=== PATIENT | female | born 1995 | race Caucasian/White ===

== ENCOUNTER 2019-09-13 14:37 | Inpatient (IN) | payer MEDICAID ==
[~2019-09-13] VITALS: Ht 152.4 cm; Wt 53.1 kg
[2019-09-13 15:53] LABS: CLARITY URINE CLEAR (CLEAR); COLOR URINE YELLOW (YELLOW); KETONES URINE TRACE (NEGATIVE); LEUKOCYTE ESTERASE URINE 2+ (NEGATIVE); NITRITE URINE NEGATIVE (NEGATIVE); OCCULT BLOOD URINE 3+ (NEGATIVE); PH URINE 5.5 (4.5-8.0); PROTEIN URINE 1+ (NEGATIVE); SPECIFIC GRAVITY URINE 1.029 (1.005-1.030)
[2019-09-13] MEDS ORDERED: DEXT 5%/LR + PITOCIN 20UNITS/L 1,000 ML IV SCH ×2 (17:43→18:31)
[2019-09-13] MEDS ORDERED: LACTATED RINGERS 1,000 ML IV SCH (17:43)
[2019-09-13] MEDS ORDERED: RHO(D) IMMUNE GLOBULIN 300 MCG/SYR IM NR (17:45)
[2019-09-13] MEDS ORDERED: FENTANYL CITRATE/PF 50MCG/ML 2ML VIAL ONE (18:12)
[2019-09-13] MEDS ORDERED: DEXAMETHASONE 4MG/ML 1ML VIAL ONE (18:13)
[2019-09-13] MEDS ORDERED: ONDANSETRON HCL 4MG/2ML INJ ONE (18:13)
[2019-09-13] MEDS ORDERED: HYDROMORPHONE HCL/PF 2MG/ML (OR) ONE (18:21)
[2019-09-13] MEDS ORDERED: KETOROLAC 60MG/2ML VIAL IM ONE (18:27)
[2019-09-13] MEDS ORDERED: SUCCINYLCHOLINE CHLORIDE 200MG/10ML IV ONE (18:38)
[2019-09-13] MEDS ORDERED: PHENYLEPHRINE HCL 10 MG/ML 1ML (IV VIAL) IV ONE (18:38)
[2019-09-13] MEDS ORDERED: CEFAZOLIN SODIUM 1000MG/VIAL ONE (18:38)
[2019-09-13] MEDS ORDERED: ROCURONIUM BROMIDE 10MG/ML VIAL 5ML IV ONE (18:38)
[2019-09-13] MEDS ORDERED: OXYTOCIN 10 UNITS/ML 1ML ONE (18:38)
[2019-09-13] MEDS ORDERED: ONDANSETRON HCL 4MG/2ML INJ IV PRN (18:45)
[2019-09-13] MEDS ORDERED: HYDROCODONE/ACETAMINOPHEN 5/325MG TABLET PO PRN (18:45)
[2019-09-13] MEDS ORDERED: DIPHENHYDRAMINE 25MG CAPSULE PO PRN (18:45)
[2019-09-13] MEDS ORDERED: LANOLIN OINT 7GM TUBE TOP PRN (18:45)
[2019-09-13] MEDS ORDERED: RHO(D) IMMUNE GLOBULIN 300 MCG/SYR IM PRN (18:45)
[2019-09-13] MEDS ORDERED: HYDROMORPHONE HCL/PF 2MG/ML CPJ IV PRN (18:45)
[2019-09-13] MEDS ORDERED: HEMORRHOIDAL SUPP PR PRN (18:45)
[2019-09-13] MEDS ORDERED: ACETAMINOPHEN WITH CODEINE 300/30MG TABLET PO PRN (18:45)
[2019-09-13] MEDS ORDERED: BISACODYL 10MG SUPP PR PRN (18:45)
[2019-09-13] MEDS ORDERED: DEXT 5%/LR + PITOCIN 20UNITS/L 1,000 ML IV ONE (19:28)
[2019-09-13 20:39] LABS: INR 0.9; PARTIAL THROMBOPLASTIN TIME 27.5 sec (23.4-31.0); PROTHROMBIN TIME 9.5 sec (9.6-11.0)
[2019-09-13 20:40] LABS: HEMOGLOBIN. 11.4 g/dL (12.0-16.0); MEAN CORPUSCULAR HEMOGLOBIN 28.7 pg (28.0-32.0); MEAN CORPUSCULAR VOLUME 85.9 fL (81.0-99.0); MEAN PLATELET VOLUME 8.7 fl (7.4-10.4); PLATELET 216 x1000/uL (130-400); RED BLOOD CELL COUNT 3.96 mill/uL (4.2-5.4); RED CELL DISTRIBUTION WIDTH 14.2 % (11.6-14.6)
[2019-09-13 21:10] LABS: HEPATITIS B SURFACE ANTIGEN NEGATIVE
[2019-09-13 21:30] VITALS: BP 133/75
[2019-09-13 21:56] LABS: PLATELET ESTIMATE NORMAL
[2019-09-13 22:00] VITALS: BP 127/79
[2019-09-13 22:30] VITALS: BP 133/78
[2019-09-14 01:40] VITALS: BP 121/64
[2019-09-14 03:09] LABS: *AMPHETAMINES SCREEN URINE NEGATIVE (NEGATIVE); *BARBITURATES SCREEN URINE NEGATIVE (NEGATIVE); *BENZODIAZEPINES SCREEN URINE NEGATIVE (NEGATIVE); *COCAINE SCREEN URINE NEGATIVE (NEGATIVE); METHADONE URINE SCREEN NEGATIVE (NEGATIVE); OPIATES URINE SCREEN NEGATIVE (NEGATIVE); PHENCYCLIDINE URINE SCREEN NEGATIVE (NEGATIVE)
[2019-09-14 03:13] LABS: CANNABINOID URINE SCREEN PRESUMTIVE POSITIVE (NEGATIVE)
[2019-09-14 04:50] VITALS: BP 124/71
[2019-09-14 06:59] LABS: BASOPHILS % 0.1 % (0.0-2.0); HEMATOCRIT. 32.1 % (36.0-48.0); HEMOGLOBIN. 10.7 g/dL (12.0-16.0); LYMPHOCYTES % 7.7 % (20.0-50.0); MEAN CORPUSCULAR HEMOGLOBIN 28.7 pg (28.0-32.0); MEAN CORPUSCULAR VOLUME 86.5 fL (81.0-99.0); MONOCYTES % 6.8 % (2.0-8.0); NEUTROPHILS % 85.4 % (40.0-76.0); PLATELET 203 x1000/uL (130-400); RED BLOOD CELL COUNT 3.71 mill/uL (4.2-5.4); RED CELL DISTRIBUTION WIDTH 14.1 % (11.6-14.6)
[2019-09-14 07:28] VITALS: BP 125/62
[2019-09-14] MEDS: MAGNESIUM/ALUMINUM HYDROXIDE/SIMETHICONE 30ML UDC PO SCH ×4 (08:43→21:06)
[2019-09-14] MEDS: FERROUS SULFATE 325MG TABLET PO SCH ×3 (08:44→17:56)
[2019-09-14] MEDS: PRENATAL VIT/FE FUMARATE/FA TABLET PO SCH (08:44)
[2019-09-14] MEDS: SIMETHICONE 80MG TABLET CHEW PO SCH ×4 (08:44→21:06)
[2019-09-14] MEDS: IBUPROFEN 400MG TABLET PO PRN ×2 (08:44→16:44)
[2019-09-14 16:05] VITALS: BP 121/58
[2019-09-14] MEDS: DOCUSATE SODIUM 100MG CAPSULE PO SCH (21:06)
[2019-09-14 22:00] VITALS: BP 123/70
[2019-09-15 06:00] VITALS: BP 112/58
[2019-09-15 07:46] VITALS: BP 110/58
[2019-09-15] MEDS: FERROUS SULFATE 325MG TABLET PO SCH ×3 (08:09→17:36)
[2019-09-15] MEDS: MAGNESIUM/ALUMINUM HYDROXIDE/SIMETHICONE 30ML UDC PO SCH ×3 (08:09→17:38)
[2019-09-15] MEDS: SIMETHICONE 80MG TABLET CHEW PO SCH ×3 (08:09→17:35)
[2019-09-15] MEDS: PRENATAL VIT/FE FUMARATE/FA TABLET PO SCH (08:10)
[2019-09-15] MEDS: IBUPROFEN 400MG TABLET PO PRN ×3 (08:10→23:36)
[2019-09-15 15:33] VITALS: BP 113/58
[2019-09-15 20:00] VITALS: BP 119/69
[2019-09-15] MEDS: DOCUSATE SODIUM 100MG CAPSULE PO SCH (20:55)
[2019-09-16] VITALS: BP 106/55
[2019-09-16 04:00] VITALS: BP 107/64
[2019-09-16 08:30] VITALS: BP 117/54
[2019-09-16] MEDS: PRENATAL VIT/FE FUMARATE/FA TABLET PO SCH (09:40)
[2019-09-16] MEDS: FERROUS SULFATE 325MG TABLET PO SCH (09:40)
[2019-09-16] MEDS: IBUPROFEN 400MG TABLET PO PRN (09:41)
[2019-09-16] MEDS: SIMETHICONE 80MG TABLET CHEW PO SCH (09:41)
== END 2019-09-16 11:45 | disposition home or self-care (01) | DRG 540 ==
LOC: 8 EST LDRP 14:37 → OBSVTOIN 14:37 → 8EST 21:36
PROVIDERS: ADMIT Obstetrics & Gynecology; ATTEND Obstetrics & Gynecology
PROC: 10D00Z1 Extraction of Products of Conception, Low, Open Approach (ICD-10-PCS; principal; 2019-09-13)
DX: O32.8XX0 Maternal care for other malpresentation of fetus, not applicable or unspecified (principal); O99.324 Drug use complicating childbirth; O99.03 Anemia complicating the puerperium; F12.10 Cannabis abuse, uncomplicated; Z37.0 Single live birth; Z3A.35 35 weeks gestation of pregnancy
CPT/HCPCS: 36415; 76805; 76818; 80305; 80349; 81003; 85025; 86592; 86703; 86762; 86850; 86900; 87340; 88307; 99281; J0330; J0690; J1100; J1170; J1885; J2370; J2405; J2590; J3010; J3490

== ENCOUNTER 2022-07-29 06:59 | Inpatient (IN) | payer MEDICAID ==
[~2022-07-29] VITALS: Ht 152.4 cm; Wt 74.8 kg
[2022-07-29 10:11] LABS: CLARITY URINE CLOUDY (CLEAR); COLOR URINE YELLOW (YELLOW); KETONES URINE TRACE (NEGATIVE); LEUKOCYTE ESTERASE URINE 1+ (NEGATIVE); NITRITE URINE NEGATIVE (NEGATIVE); OCCULT BLOOD URINE 3+ (NEGATIVE); PH URINE 6.5 (4.5-8.0); PROTEIN URINE 1+ (NEGATIVE); SPECIFIC GRAVITY URINE 1.016 (1.005-1.030)
[2022-07-29] MEDS ORDERED: MAGNESIUM 2 G PREMIX 50 ML IV ONE (11:30)
[2022-07-29] MEDS ORDERED: MAGNESIUM 4 G PREMIX 100 ML IV NR (11:45)
[2022-07-29] MEDS ORDERED: BETAMETHASONE ACET/BETAMET 30 MG/5 ML VIAL IM NR (12:00)
[2022-07-29] MEDS: MAGNESIUM 20 G PREMIX (L & D) 500 ML IV SCH ×3 (12:05→22:15)
[2022-07-29] MEDS ORDERED: AMPICILLIN 2,000 MG in SODIUM CHLORIDE 0.9% 100 ML IV SCH (12:30)
[2022-07-29] MEDS: LACTATED RINGERS 1,000 ML IV SCH ×2 (15:31→23:53)
[2022-07-29] MEDS: AMPICILLIN 1,000 MG in SODIUM CHLORIDE 0.9% 50 ML IV SCH (20:12)
[2022-07-29] MEDS ORDERED: PNV1TABL76 PO (21:29)
[2022-07-29] MEDS ORDERED: FERR325T23 GT (21:29)
[2022-07-29] MEDS ORDERED: VIT1TABL62 PO (21:29)
[2022-07-29] MEDS ORDERED: FERR325T6 PO (21:29)
[2022-07-30] MEDS: AMPICILLIN 1,000 MG in SODIUM CHLORIDE 0.9% 50 ML IV SCH ×3 (02:00→14:17)
[2022-07-30 08:11] VITALS: BP 109/60
[2022-07-30] MEDS: MAGNESIUM 20 G PREMIX (L & D) 500 ML IV SCH (08:11)
[2022-07-30] MEDS ORDERED: BETAMETHASONE ACET/BETAMET 30 MG/5 ML VIAL IM ONE (14:00)
[2022-07-30] MEDS: LACTATED RINGERS 1,000 ML IV SCH (14:22)
== END 2022-07-30 18:15 | disposition home or self-care (01) | DRG 566 ==
LOC: OBSVTOIN 06:59 → 8 EST LDRP 06:59
PROVIDERS: ADMIT Specialist; ATTEND Specialist
DX: O60.03 Preterm labor without delivery, third trimester (principal); O23.43 Unspecified infection of urinary tract in pregnancy, third trimester; N39.0 Urinary tract infection, site not specified; Z3A.29 29 weeks gestation of pregnancy; Z20.822 Contact with and (suspected) exposure to COVID-19
CPT/HCPCS: 36415; 59412; 76805; 76818; 81003; 83735; 87426; 96365; 96372; 99281; J0290; J0702; J3475; J7050; J7120; A4315

== ENCOUNTER 2022-08-01 08:09 | Inpatient (IN) | payer MEDICAID ==
[~2022-08-01] VITALS: Ht 152.4 cm; Wt 77.1 kg
[~2022-08-01 08:09] MED LIST: FERR325T23 GT; FERR325T6 PO; PNV1TABL76 PO; VIT1TABL62 PO
[2022-08-01] MEDS ORDERED: MAGNESIUM 4 G PREMIX 100 ML IV NR (09:15)
[2022-08-01] MEDS ORDERED: MAGNESIUM 20 G PREMIX (L & D) 500 ML IV SCH (09:15)
[2022-08-01] MEDS: LACTATED RINGERS 1,000 ML IV SCH ×2 (09:58→17:26)
[2022-08-01 10:55] LABS: BASOPHILS % 0.2 % (0.0-2.0); EOSINOPHILS % 0.3 % (0.0-5.0); HEMATOCRIT. 34.4 % (36.0-48.0); HEMOGLOBIN. 11.6 g/dL (12.0-16.0); LYMPHOCYTES % 19.7 % (20.0-50.0); MEAN CORPUSCULAR HEMOGLOBIN 29.9 pg (28.0-32.0); MEAN CORPUSCULAR VOLUME 88.4 fL (81.0-99.0); MEAN PLATELET VOLUME 7.9 fl (7.4-10.4); MONOCYTES % 9.3 % (2.0-8.0); NEUTROPHILS % 70.5 % (40.0-76.0); PLATELET 221 x1000/uL (130-400); RED BLOOD CELL COUNT 3.89 mill/uL (4.2-5.4); RED CELL DISTRIBUTION WIDTH 13.4 % (11.6-14.6)
[2022-08-01 11:11] LABS: INR 0.9; PARTIAL THROMBOPLASTIN TIME 24.8 sec (23.4-31.0); PROTHROMBIN TIME 9.8 sec (9.6-11.0)
[2022-08-01 12:49] LABS: *AMPHETAMINES SCREEN URINE NEGATIVE (NEGATIVE); *BARBITURATES SCREEN URINE NEGATIVE (NEGATIVE); *BENZODIAZEPINES SCREEN URINE NEGATIVE (NEGATIVE); *COCAINE SCREEN URINE NEGATIVE (NEGATIVE); METHADONE URINE SCREEN NEGATIVE (NEGATIVE); OPIATES URINE SCREEN NEGATIVE (NEGATIVE); PHENCYCLIDINE URINE SCREEN NEGATIVE (NEGATIVE)
[2022-08-01 12:52] LABS: CANNABINOID URINE SCREEN PRESUMTIVE POSITIVE (NEGATIVE)
[2022-08-01 13:26] LABS: HEPATITIS B SURFACE ANTIGEN NEGATIVE
[2022-08-01 14:56] LABS: CLARITY URINE CLOUDY (CLEAR); COLOR URINE RED (YELLOW); KETONES URINE NEGATIVE (NEGATIVE); LEUKOCYTE ESTERASE URINE 1+ (NEGATIVE); NITRITE URINE NEGATIVE (NEGATIVE); OCCULT BLOOD URINE 3+ (NEGATIVE); PROTEIN URINE TRACE (NEGATIVE); SPECIFIC GRAVITY URINE 1.015 (1.005-1.030)
[2022-08-01] MEDS ORDERED: INDOMETHACIN 25MG CAPSULE PO NR (16:30)
[2022-08-01] MEDS: PANTOPRAZOLE SODIUM 40 MG/VIAL IV SCH (17:14)
[2022-08-01] MEDS ORDERED: PANTOPRAZOLE SODIUM 40 MG/VIAL IV SCH (21:00)
[2022-08-02] MEDS: LACTATED RINGERS 1,000 ML IV SCH ×4 (02:39→22:18)
[2022-08-02] MEDS: PANTOPRAZOLE SODIUM 40 MG/VIAL IV SCH ×2 (06:13→18:10)
[2022-08-02] MEDS ORDERED: CITRIC ACID/SODIUM CITRATE SOLN 30ML UDC PO NR (20:45)
[2022-08-02] MEDS ORDERED: MORPHINE SULFATE/PF 1MG/ML 10ML AMP ONE (22:08)
[2022-08-02] MEDS ORDERED: EPHEDRINE SULFATE 50MG/ML VIAL ONE (22:14)
[2022-08-02] MEDS ORDERED: PHENYLEPHRINE HCL 10 MG/ML 1ML (IV VIAL) IV ONE (22:15)
[2022-08-02] MEDS ORDERED: OXYTOCIN 10 UNITS/ML 1ML ONE (22:22)
[2022-08-02] MEDS ORDERED: ONDANSETRON HCL 4MG/2ML INJ ONE (23:04)
[2022-08-02] MEDS ORDERED: FENTANYL CITRATE/PF 50MCG/ML 2ML VIAL ONE (23:04)
[2022-08-02] MEDS ORDERED: KETOROLAC 60MG/2ML VIAL IM ONE (23:05)
[2022-08-02] MEDS ORDERED: FENTANYL CITRATE/PF 50MCG/ML 2ML VIAL IV PRN (23:45)
[2022-08-02] MEDS ORDERED: KETOROLAC 30MG/ML VIAL IV PRN (23:45)
[2022-08-02] MEDS ORDERED: MORPHINE SULFATE 4 MG/ML CPJ (NOT FOR IM USE) IV PRN (23:45)
[2022-08-02] MEDS ORDERED: NALOXONE HCL 0.4 MG/ML 1ML VIAL IV PRN (23:45)
[2022-08-02] MEDS ORDERED: ACETAMINOPHEN 500MG TABLET PO PRN (23:45)
[2022-08-03] MEDS ORDERED: HEMORRHOIDAL SUPP PR PRN (00:15)
[2022-08-03] MEDS ORDERED: LANOLIN OINT 7GM TUBE TOP PRN (00:15)
[2022-08-03] MEDS ORDERED: DIPHENHYDRAMINE 25MG CAPSULE PO PRN (00:15)
[2022-08-03] MEDS ORDERED: RHO(D) IMMUNE GLOBULIN 300 MCG/SYR IM PRN (00:15)
[2022-08-03] MEDS ORDERED: OXYCODONE HCL/ACETAMINOPHEN 5/325MG TABLET PO PRN (00:15)
[2022-08-03] MEDS ORDERED: ACETAMINOPHEN WITH CODEINE 300/30MG TABLET PO PRN (00:15)
[2022-08-03] MEDS ORDERED: ONDANSETRON HCL 4MG/2ML INJ IV PRN (00:15)
[2022-08-03] MEDS ORDERED: BISACODYL 10MG SUPP PR PRN (00:15)
[2022-08-03] MEDS ORDERED: OXYTOCIN 30 UNITS/500ML NS PMX 500 ML IV SCH (00:15)
[2022-08-03] MEDS ORDERED: IBUPROFEN 400MG TABLET PO PRN (00:15)
[2022-08-03 01:15] VITALS: BP 117/56
[2022-08-03] MEDS: LACTATED RINGERS 1,000 ML IV SCH ×2 (03:49→11:04)
[2022-08-03 04:00] VITALS: BP 115/60
[2022-08-03] MEDS: MAGNESIUM/ALUMINUM HYDROXIDE/SIMETHICONE 30ML UDC PO SCH ×4 (07:30→21:00)
[2022-08-03 08:00] VITALS: BP 120/63
[2022-08-03] MEDS: PRENATAL VIT/FE FUMARATE/FA TABLET PO SCH (08:20)
[2022-08-03] MEDS: PANTOPRAZOLE SODIUM 40 MG/VIAL IV SCH ×3 (09:00→21:52)
[2022-08-03] MEDS: CEFAZOLIN 2,000 MG in DEXT 5% WATER 100 ML IV SCH ×2 (11:04→17:40)
[2022-08-03 13:06] LABS: HIV SCREEN 4G Non Reactive (Non Reactive)
[2022-08-03 15:59] VITALS: BP 124/62
[2022-08-03 20:00] VITALS: BP 116/62
[2022-08-03] MEDS: DOCUSATE SODIUM 100MG CAPSULE PO SCH (21:51)
[2022-08-04 04:00] VITALS: BP 124/64
[2022-08-04] MEDS: IBUPROFEN 800MG TABLET PO PRN ×3 (04:25→17:24)
[2022-08-04 07:03] LABS: BASOPHILS % 0.3 % (0.0-2.0); EOSINOPHILS % 0.6 % (0.0-5.0); HEMATOCRIT. 31.9 % (36.0-48.0); HEMOGLOBIN. 10.9 g/dL (12.0-16.0); LYMPHOCYTES % 16.2 % (20.0-50.0); MEAN CORPUSCULAR HEMOGLOBIN 29.9 pg (28.0-32.0); MEAN CORPUSCULAR VOLUME 87.6 fL (81.0-99.0); MONOCYTES % 6.7 % (2.0-8.0); NEUTROPHILS % 76.2 % (40.0-76.0); PLATELET 184 x1000/uL (130-400); RED BLOOD CELL COUNT 3.64 mill/uL (4.2-5.4); RED CELL DISTRIBUTION WIDTH 13.5 % (11.6-14.6)
[2022-08-04] MEDS: MAGNESIUM/ALUMINUM HYDROXIDE/SIMETHICONE 30ML UDC PO SCH ×3 (09:30→21:18)
[2022-08-04] MEDS: FERROUS SULFATE 325MG TABLET PO SCH ×2 (09:31→17:24)
[2022-08-04] MEDS: PRENATAL VIT/FE FUMARATE/FA TABLET PO SCH (09:31)
[2022-08-04 10:05] VITALS: BP 125/71
[2022-08-04 16:30] VITALS: BP 121/65
[2022-08-04] MEDS: DOCUSATE SODIUM 100MG CAPSULE PO SCH (21:18)
[2022-08-04 22:00] VITALS: BP 127/65
[2022-08-05 06:00] VITALS: BP 123/67
[2022-08-05 08:00] VITALS: BP 108/63
[2022-08-05] MEDS: FERROUS SULFATE 325MG TABLET PO SCH (08:45)
[2022-08-05] MEDS: MAGNESIUM/ALUMINUM HYDROXIDE/SIMETHICONE 30ML UDC PO SCH (08:45)
[2022-08-05] MEDS: PRENATAL VIT/FE FUMARATE/FA TABLET PO SCH (08:45)
[2022-08-05] MEDS ORDERED: IBUP-2030 PO (10:54)
== END 2022-08-05 11:45 | disposition home or self-care (01) | DRG 540 ==
LOC: 8 EST LDRP 08:09 → OBSVTOIN 08:09 → 8EST 08-03 01:15
PROVIDERS: ADMIT Obstetrics & Gynecology; ATTEND Obstetrics & Gynecology
PROC: 10D00Z1 Extraction of Products of Conception, Low, Open Approach (ICD-10-PCS; principal; 2022-08-02)
DX: O42.913 Preterm premature rupture of membranes, unspecified as to length of time between rupture and onset of labor, third trimester (principal); O34.211 Maternal care for low transverse scar from previous cesarean delivery; Z20.822 Contact with and (suspected) exposure to COVID-19; Z37.0 Single live birth; Z3A.33 33 weeks gestation of pregnancy; Z3A.30 30 weeks gestation of pregnancy
CPT/HCPCS: 36415; 80305; 80349; 81003; 83735; 85025; 86592; 86644; 86762; 86850; 86900; 87340; 87389; 87426; 88307; 99281; C1893; C9113; J0690; J1885; J2274; J2370; J2405; J3010; J3475; J3490; J7060; J7120; A4315